=== PATIENT | female | born 1965 | race Caucasian/White ===

== ENCOUNTER 2022-06-30 22:56 | Inpatient (IN) | payer BC ==
[2022-07-01] MEDS: Ondansetron 4 MG/2 ML SDV IVPUSH PRN ×2 (00:31→06:16)
[2022-07-01] MEDS: fentaNYL 50 MCG/ML SDV IVPUSH PRN ×4 (00:31→07:39)
[2022-07-01] MEDS: Lactated Ringers 1,000 ML IV SCH ×2 (01:45→07:40)
[2022-07-01 04:34] LABS: HEMATOCRIT 43.7 % (34.3-46.0); HEMOGLOBIN 14.2 g/dL (11.2-15.5); MEAN CORPUSCULAR HEMOGLOBIN 32.9 pg (31.6-35.5); MEAN CORPUSCULAR HGB CONC 32.5 g/dL (31.6-35.5); MEAN CORPUSCULAR VOLUME 101.4 fL (81.4-99.0); RED BLOOD CELL COUNT 4.31 M/uL (3.77-5.24); WHITE BLOOD CELL COUNT,WBC 7.6 K/uL (3.2-11.0)
[2022-07-01 05:04] LABS: A/G RATIO 0.7 (1.2-2.2); ALANINE AMINOTRANSFERASE,ALT 28 U/L (12-78); ALBUMIN 2.9 g/dL (3.4-5.0); ALKALINE PHOSPHATASE 149 U/L (46-116); ASPARTATE AMNIOTRANSFERASE,AST 25 U/L (15-37); BILIRUBIN TOTAL 0.4 mg/dL (0.2-1.0); BLOOD UREA NITROGEN,BUN 7 mg/dL (7-18); CALCIUM 8.7 mg/dL (8.5-10.1); CARBON DIOXIDE,CO2 27 mmol/L (21-32); CHLORIDE,CL 103 mmol/L (100-108); CREATININE 0.8 mg/dL (0.6-1.0); ESTIMATED GFR 86 mL/min (>60); FERRITIN 244 ng/ml (8-388); GLUCOSE RANDOM 114 mg/dL (74-106); MAGNESIUM 1.8 mg/dL (1.8-2.4); PHOSPHORUS 4.3 mg/dL (2.5-4.9); POTASSIUM,K 4.8 mmol/L (3.6-5.2); SODIUM,NA 138 mmol/L (140-148)
[2022-07-01 05:07] LABS: ANION GAP 12.8 mmol/L (5.0-14.0)
[2022-07-01] MEDS: fentaNYL/Normal Saline 600 MCG/30 ML PCA Vial IV PRN ×2 (07:46→20:25)
[2022-07-01] MEDS ORDERED: Naloxone 0.4 MG/ML SDV IV PRN (08:00)
[2022-07-01] MEDS ORDERED: Ketamine 500 MG/5 ML MDV IV SCH ×2 (08:15→14:00)
[2022-07-01] MEDS ORDERED: PARoxetine 20 MG Tab PO ONE (09:15)
[2022-07-01] MEDS ORDERED: Enoxaparin 60 MG/0.6 ML Syringe SUBCUT ONE (09:45)
[2022-07-01] MEDS: Diltiazem 180 MG Cap.CD PO SCH (09:56)
[2022-07-01] MEDS: Levothyroxine 112 MCG Tab PO SCH (09:56)
[2022-07-01] MEDS: Levothyroxine 25 MCG Tab PO SCH (09:57)
[2022-07-01] MEDS: Pregabalin 50 MG Cap PO SCH ×2 (10:01→20:29)
[2022-07-01] MEDS ORDERED: Lidocaine 1% with EPINEPHrine 1:100,000 50 ML MDV ONE (12:14)
[2022-07-01] MEDS ORDERED: Bupivacaine 0.5% 50 ML MDV ONE (12:14)
[2022-07-01] MEDS ORDERED: Meropenem 500 MG SDV ONE ×2 (12:14→13:53)
[2022-07-01] MEDS ORDERED: Dexamethasone 4 MG/ML SDV ONE (13:55)
[2022-07-01] MEDS ORDERED: Propofol 200 MG/20 ML SDV ONE (13:55)
[2022-07-01] MEDS ORDERED: Rocuronium 50 MG/5 ML Vial ONE (13:55)
[2022-07-01] MEDS ORDERED: Succinylcholine 200 MG/10 ML MDV ONE (13:55)
[2022-07-01] MEDS ORDERED: Glycopyrrolate 0.2 MG/ML 5 ML MDV ONE (13:55)
[2022-07-01] MEDS ORDERED: Ondansetron 4 MG/2 ML SDV ONE (13:55)
[2022-07-01] MEDS ORDERED: fentaNYL 250 MCG/5 ML SDV ONE (13:55)
[2022-07-01] MEDS ORDERED: Neostigmine Methylsulfate 1 MG/ML 5 ML Syringe ONE (13:55)
[2022-07-01] MEDS ORDERED: Ketamine 16 MG in Sodium Chloride 0.9% 19.84 ML IV SCH (14:00)
[2022-07-01] MEDS ORDERED: Meropenem 500 MG in Sodium Chloride 0.9% 50 ML IV ONE (14:00)
[2022-07-01] MEDS ORDERED: Lactated Ringers 1,000 ML ONE (14:39)
[2022-07-01] MEDS ORDERED: Labetalol 20 MG/4 ML Syringe ONE (15:13)
[2022-07-01] MEDS ORDERED: Ketoconazole 2% Crm 30 GM Tube ONE (15:27)
[2022-07-01] MEDS ORDERED: Scopolamine 1.5 MG Transdermal Patch ONE (15:38)
[2022-07-01] MEDS ORDERED: droPERidol 5 MG/2 ML SDV ONE (15:57)
[2022-07-01] MEDS ORDERED: Cyclobenzaprine 10 MG Tab PO PRN (16:01)
[2022-07-01] MEDS ORDERED: hydrOXYzine HCl 50 MG/ML SDV IM ONE (16:02)
[2022-07-01] MEDS ORDERED: Midazolam 1 MG/ML 2 ML SDV ONE (16:06)
[2022-07-01] MEDS ORDERED: Lactated Ringers 1,000 ML IV SCH (16:15)
[2022-07-01] MEDS ORDERED: Mirtazapine 15 MG Tab PO PRN (16:31)
[2022-07-01] MEDS ORDERED: Nitroglycerin 0.4 MG Tab.SL SL PRN (16:35)
[2022-07-01] MEDS ORDERED: Albuterol/Ipratropium 3.0-0.5 MG/3 ML Neb Soln INH PRN (16:47)
[2022-07-01] MEDS ORDERED: Glucagon,Human Recombinant 1 MG Vial IM PRN (17:00)
[2022-07-01] MEDS ORDERED: 50% Dextrose in Water 50 ML Syringe IVPUSH PRN (17:00)
[2022-07-01] MEDS ORDERED: Acetaminophen 500 MG Tab PO PRN (17:00)
[2022-07-01] MEDS ORDERED: diphenhydrAMINE 50 MG/ML SDV IVPUSH PRN (17:00)
[2022-07-01] MEDS ORDERED: Metoclopramide 10 MG/2 ML SDV IVPUSH PRN (17:00)
[2022-07-01] MEDS ORDERED: Labetalol 20 MG/4 ML Syringe IVPUSH PRN (17:00)
[2022-07-01] MEDS: Insulin Lispro 100 Unit/ML 3 ML KwikPen SUBCUT SCH ×2 (17:31→21:44)
[2022-07-01] MEDS: SCOPOLAMINE PATCH CHECK TOP SCH (17:32)
[2022-07-01] MEDS: MVI, Adult with Vitamin K 10 ML, Thiamine 200 MG, Zinc/Copper/Manganese/Selenium 1 ML i... IV SCH ×4 (17:32)
[2022-07-01] MEDS: Pantoprazole 40 MG Vial IVPUSH SCH (17:34)
[2022-07-01] MEDS ORDERED: Fluconazole/Normal Saline 400 MG in Premix Bag 1 BAG IV ONE (18:00)
[2022-07-01] MEDS: Meropenem 500 MG in Sodium Chloride 0.9% 50 ML IV SCH (19:45)
[2022-07-01] MEDS ORDERED: Enoxaparin 60 MG/0.6 ML Syringe SUBCUT SCH (20:00)
[2022-07-01] MEDS: traZODone 50 MG Tab PO SCH (20:29)
[2022-07-01] MEDS: Zonisamide 50 MG Capsule PO SCH (20:30)
[2022-07-01] MEDS: Mirtazapine 15 MG Tab PO SCH (20:31)
[2022-07-01] MEDS: QUEtiapine 100 MG Tab PO SCH (20:31)
[2022-07-01] MEDS: Prazosin 1 MG Cap PO SCH (20:31)
[2022-07-01] MEDS ORDERED: traMADol 50 MG Tab PO SCH (21:00)
[2022-07-01] MEDS: Acetaminophen 500 MG Tab PO SCH (21:40)
[2022-07-02] MEDS: Meropenem 500 MG in Sodium Chloride 0.9% 50 ML IV SCH ×4 (01:55→20:25)
[2022-07-02] MEDS ORDERED: Iopamidol 612 MG/ML 30 ML SDV PO STA (03:42)
[2022-07-02 04:43] LABS: BASOPHILS PERCENT AUTO 0.2 % (0.1-1.3); HEMATOCRIT 40.4 % (34.3-46.0); HEMOGLOBIN 13.1 g/dL (11.2-15.5); IMMATURE GRAN PERCENT AUTO 0.2 % (0.0-0.7); LYMPHOCYTES ABSOLUTE AUTO 0.46 K/uL (0.8-3.3); MEAN CORPUSCULAR HEMOGLOBIN 33.1 pg (31.6-35.5); MEAN CORPUSCULAR HGB CONC 32.4 g/dL (31.6-35.5); MONOCYTES ABSOLUTE AUTO 0.56 K/uL (0.20-0.90); MONOCYTES PERCENT AUTO 8.6 % (3.3-12.6); PLATELET COUNT,PLT 225 K/uL (130-375); RED BLOOD CELL COUNT 3.96 M/uL (3.77-5.24); WHITE BLOOD CELL COUNT,WBC 6.5 K/uL (3.2-11.0)
[2022-07-02 04:46] LABS: BASOPHILS ABSOLUTE AUTO 0.01 K/uL (0.00-0.10); IMMATURE GRAN ABSOLUTE AUTO 0.01 K/uL (0.00-0.23)
[2022-07-02] MEDS: Insulin Lispro 100 Unit/ML 3 ML KwikPen SUBCUT SCH ×4 (04:52→22:05)
[2022-07-02 04:56] LABS: HEMOGLOBIN A1C 5.3 % (4.5-6.2)
[2022-07-02] MEDS: Acetaminophen 500 MG Tab PO SCH ×3 (05:05→21:37)
[2022-07-02 05:12] LABS: A/G RATIO 0.6 (1.2-2.2); ALANINE AMINOTRANSFERASE,ALT 30 U/L (12-78); ALBUMIN 2.5 g/dL (3.4-5.0); ALKALINE PHOSPHATASE 122 U/L (46-116); ASPARTATE AMNIOTRANSFERASE,AST 23 U/L (15-37); BILIRUBIN TOTAL 0.4 mg/dL (0.2-1.0); BLOOD UREA NITROGEN,BUN 12 mg/dL (7-18); CALCIUM 7.9 mg/dL (8.5-10.1); CARBON DIOXIDE,CO2 25 mmol/L (21-32); CHLORIDE,CL 102 mmol/L (100-108); CREATININE 0.9 mg/dL (0.6-1.0); EST CRCL DRUG DOSING (CG) 60.27 mL/min; ESTIMATED GFR 75 mL/min (>60); GLUCOSE RANDOM 175 mg/dL (74-106); MAGNESIUM 1.5 mg/dL (1.8-2.4); PHOSPHORUS 3.5 mg/dL (2.5-4.9); POTASSIUM,K 4.5 mmol/L (3.6-5.2); PRO B-TYPE NATRIUR PEPT,BNPPRO 457 pg/mL (5-125); PROTEIN TOTAL,TP 6.4 g/dL (6.4-8.2); SODIUM,NA 136 mmol/L (140-148)
[2022-07-02 05:14] LABS: ANION GAP 13.5 mmol/L (5.0-14.0)
[2022-07-02] MEDS: Ondansetron 4 MG/2 ML SDV IVPUSH PRN ×2 (05:14→12:39)
[2022-07-02] MEDS ORDERED: Dextrose 5%-Lactated Ringers 1,000 ML IV SCH (07:30)
[2022-07-02] MEDS: Lactated Ringers 1,000 ML IV SCH (07:59)
[2022-07-02] MEDS: Zonisamide 50 MG Capsule PO SCH ×2 (08:45→21:37)
[2022-07-02] MEDS: Pregabalin 50 MG Cap PO SCH ×2 (08:46→21:34)
[2022-07-02] MEDS: Levothyroxine 25 MCG Tab PO SCH (08:46)
[2022-07-02] MEDS: Aspirin 81 MG Tab.EC PO SCH (08:46)
[2022-07-02] MEDS: Levothyroxine 112 MCG Tab PO SCH (08:46)
[2022-07-02] MEDS: PARoxetine 20 MG Tab PO SCH (08:46)
[2022-07-02] MEDS: Diltiazem 180 MG Cap.CD PO SCH (08:46)
[2022-07-02] MEDS ORDERED: Celecoxib 200 MG Cap PO SCH (09:00)
[2022-07-02] MEDS: SCOPOLAMINE PATCH CHECK TOP SCH (09:03)
[2022-07-02] MEDS: hydrOXYzine HCl 50 MG/ML SDV IM PRN (10:04)
[2022-07-02] MEDS: Ketoconazole 2% Crm 30 GM Tube TOP SCH (10:05)
[2022-07-02] MEDS: Magnesium Sulfate/Water 2 GM/50 ML BAG IV SCH ×3 (10:59→21:38)
[2022-07-02] MEDS: Ondansetron 4 MG Tab.DIS PO PRN (12:39)
[2022-07-02] MEDS: ALPRAZolam 0.5 MG Tab PO SCH ×2 (13:49→21:34)
[2022-07-02] MEDS ORDERED: Tranexamic Acid 1,000 MG in Sodium Chloride 0.9% 50 ML IV ONE (15:30)
[2022-07-02] MEDS: Fluconazole 100 MG Tab PO SCH (17:07)
[2022-07-02] MEDS: Pantoprazole 40 MG Vial IVPUSH SCH (17:08)
[2022-07-02] MEDS: MVI, Adult with Vitamin K 10 ML, Thiamine 200 MG, Zinc/Copper/Manganese/Selenium 1 ML i... IV SCH ×4 (18:05)
[2022-07-02] MEDS: Prazosin 1 MG Cap PO SCH (21:34)
[2022-07-02] MEDS: Mirtazapine 15 MG Tab PO SCH (21:38)
[2022-07-02] MEDS: QUEtiapine 100 MG Tab PO SCH (21:38)
[2022-07-02] MEDS: traZODone 50 MG Tab PO SCH (21:38)
[2022-07-03] MEDS: Meropenem 500 MG in Sodium Chloride 0.9% 50 ML IV SCH ×3 (02:45→13:08)
[2022-07-03] MEDS: Magnesium Sulfate/Water 2 GM/50 ML BAG IV SCH ×4 (04:07→21:42)
[2022-07-03] MEDS: Insulin Lispro 100 Unit/ML 3 ML KwikPen SUBCUT SCH ×4 (04:09→22:27)
[2022-07-03 04:30] LABS: HEMATOCRIT 31.5 % (34.3-46.0); MEAN CORPUSCULAR HEMOGLOBIN 33.3 pg (31.6-35.5); MEAN CORPUSCULAR HGB CONC 31.7 g/dL (31.6-35.5); WHITE BLOOD CELL COUNT,WBC 5.1 K/uL (3.2-11.0)
[2022-07-03 05:03] LABS: A/G RATIO 0.6 (1.2-2.2); ALANINE AMINOTRANSFERASE,ALT 23 U/L (12-78); ALKALINE PHOSPHATASE 91 U/L (46-116); ANION GAP 3.1 mmol/L (5.0-14.0); ASPARTATE AMNIOTRANSFERASE,AST 21 U/L (15-37); BILIRUBIN TOTAL 0.2 mg/dL (0.2-1.0); BLOOD UREA NITROGEN,BUN 14 mg/dL (7-18); CALCIUM 7.8 mg/dL (8.5-10.1); CARBON DIOXIDE,CO2 31 mmol/L (21-32); CHLORIDE,CL 107 mmol/L (100-108); CREATININE 0.8 mg/dL (0.6-1.0); ESTIMATED GFR 86 mL/min (>60); GLUCOSE RANDOM 97 mg/dL (74-106); PHOSPHORUS 2.3 mg/dL (2.5-4.9); POTASSIUM,K 4.4 mmol/L (3.6-5.2); PRO B-TYPE NATRIUR PEPT,BNPPRO 340 pg/mL (5-125); PROTEIN TOTAL,TP 5.4 g/dL (6.4-8.2); SODIUM,NA 141 mmol/L (140-148)
[2022-07-03] MEDS: Acetaminophen 500 MG Tab PO SCH ×3 (05:22→21:37)
[2022-07-03] MEDS ORDERED: Potassium Phosphates 3 mMole/ML 15 ML SDV IV ONE (07:30)
[2022-07-03] MEDS: Diltiazem 180 MG Cap.CD PO SCH (08:16)
[2022-07-03] MEDS: Aspirin 81 MG Tab.EC PO SCH (08:16)
[2022-07-03] MEDS: Levothyroxine 112 MCG Tab PO SCH (08:17)
[2022-07-03] MEDS: Levothyroxine 25 MCG Tab PO SCH (08:17)
[2022-07-03] MEDS: SCOPOLAMINE PATCH CHECK TOP SCH (08:18)
[2022-07-03] MEDS: Ketoconazole 2% Crm 30 GM Tube TOP SCH (08:18)
[2022-07-03] MEDS: PARoxetine 20 MG Tab PO SCH (08:19)
[2022-07-03] MEDS: Zonisamide 50 MG Capsule PO SCH ×2 (08:19→21:38)
[2022-07-03] MEDS: Apixaban 5 MG Tab PO SCH ×2 (08:26→21:38)
[2022-07-03] MEDS: Docusate Sodium 100 MG Cap PO SCH ×2 (08:26→21:37)
[2022-07-03] MEDS: Bisacodyl 5 MG Tab PO SCH ×2 (08:26→21:38)
[2022-07-03] MEDS: Pantoprazole 40 MG Tab.CR PO SCH (08:26)
[2022-07-03] MEDS: ALPRAZolam 0.5 MG Tab PO SCH ×3 (08:31→21:42)
[2022-07-03] MEDS: Pregabalin 50 MG Cap PO SCH ×2 (08:32→21:42)
[2022-07-03] MEDS: HYDROmorphone 2 MG Tab PO PRN ×2 (08:57→15:03)
[2022-07-03] MEDS: Lactated Ringers 1,000 ML IV SCH (08:59)
[2022-07-03] MEDS ORDERED: Cyanocobalamin (Vitamin B12) 1,000 MCG/ML SDV IM ONE (09:00)
[2022-07-03] MEDS: Potassium Phos in 0.9 % NaCl 15 MMOL in Premix Bag 1 BAG IV SCH ×6 (09:58→16:02)
[2022-07-03] MEDS: Fluconazole 100 MG Tab PO SCH (16:01)
[2022-07-03] MEDS: hydrOXYzine HCl 50 MG/ML SDV IM PRN (17:55)
[2022-07-03] MEDS: traZODone 50 MG Tab PO SCH (21:38)
[2022-07-03] MEDS: QUEtiapine 100 MG Tab PO SCH (21:38)
[2022-07-03] MEDS: Prazosin 1 MG Cap PO SCH (21:38)
[2022-07-03] MEDS: Mirtazapine 15 MG Tab PO SCH (21:38)
[2022-07-04] MEDS: Lactated Ringers 1,000 ML IV SCH (01:35)
[2022-07-04] MEDS: Magnesium Sulfate/Water 2 GM/50 ML BAG IV SCH (03:14)
[2022-07-04 04:18] LABS: HEMOGLOBIN 9.9 g/dL (11.2-15.5); MEAN CORPUSCULAR HEMOGLOBIN 32.8 pg (31.6-35.5); MEAN CORPUSCULAR HGB CONC 30.9 g/dL (31.6-35.5); RED BLOOD CELL COUNT 3.02 M/uL (3.77-5.24); WHITE BLOOD CELL COUNT,WBC 4.8 K/uL (3.2-11.0)
[2022-07-04] MEDS: Insulin Lispro 100 Unit/ML 3 ML KwikPen SUBCUT SCH (04:21)
[2022-07-04 04:47] LABS: A/G RATIO 0.6 (1.2-2.2); ALANINE AMINOTRANSFERASE,ALT 21 U/L (12-78); ALBUMIN 2.2 g/dL (3.4-5.0); ALKALINE PHOSPHATASE 97 U/L (46-116); ANION GAP 5.1 mmol/L (5.0-14.0); ASPARTATE AMNIOTRANSFERASE,AST 26 U/L (15-37); BILIRUBIN TOTAL 0.2 mg/dL (0.2-1.0); BLOOD UREA NITROGEN,BUN 12 mg/dL (7-18); CALCIUM 7.9 mg/dL (8.5-10.1); CARBON DIOXIDE,CO2 29 mmol/L (21-32); CHLORIDE,CL 106 mmol/L (100-108); CREATININE 0.8 mg/dL (0.6-1.0); ESTIMATED GFR 86 mL/min (>60); GLUCOSE RANDOM 103 mg/dL (74-106); PHOSPHORUS 3.4 mg/dL (2.5-4.9); POTASSIUM,K 4.8 mmol/L (3.6-5.2); PRO B-TYPE NATRIUR PEPT,BNPPRO 1309 pg/mL (5-125); PROTEIN TOTAL,TP 5.9 g/dL (6.4-8.2); SODIUM,NA 140 mmol/L (140-148)
[2022-07-04] MEDS: Acetaminophen 500 MG Tab PO SCH (05:11)
[2022-07-04] MEDS: Ondansetron 4 MG Tab.DIS PO PRN (05:48)
[2022-07-04] MEDS: Bisacodyl 5 MG Tab PO SCH (08:18)
[2022-07-04] MEDS: Pantoprazole 40 MG Tab.CR PO SCH (08:18)
[2022-07-04] MEDS: Zonisamide 50 MG Capsule PO SCH (08:19)
[2022-07-04] MEDS: Diltiazem 180 MG Cap.CD PO SCH (08:19)
[2022-07-04] MEDS: Aspirin 81 MG Tab.EC PO SCH (08:19)
[2022-07-04] MEDS: Docusate Sodium 100 MG Cap PO SCH (08:19)
[2022-07-04] MEDS: Apixaban 5 MG Tab PO SCH (08:19)
[2022-07-04] MEDS: Levothyroxine 25 MCG Tab PO SCH (08:19)
[2022-07-04] MEDS: PARoxetine 20 MG Tab PO SCH (08:20)
[2022-07-04] MEDS: Ketoconazole 2% Crm 30 GM Tube TOP SCH (08:20)
[2022-07-04] MEDS: Levothyroxine 112 MCG Tab PO SCH (08:21)
[2022-07-04] MEDS: ALPRAZolam 0.5 MG Tab PO SCH (08:29)
[2022-07-04] MEDS: HYDROmorphone 2 MG Tab PO PRN (08:29)
[2022-07-04] MEDS: Pregabalin 50 MG Cap PO SCH (08:29)
[2022-07-04] MEDS ORDERED: Magnesium Hydroxide 400 MG/5 ML Susp 30 ML Cup PO ONE (09:00)
== END 2022-07-04 09:58 | disposition home or self-care (01) | DRG 221 ==
LOC: JP.MS 22:56
PROVIDERS: ADMIT Surgery; ATTEND Surgery
PROC: 0DT80ZZ Resection of Small Intestine, Open Approach (ICD-10-PCS; principal; 2022-07-01)
PROC: 0DS80ZZ Reposition Small Intestine, Open Approach (ICD-10-PCS; 2022-07-01)
PROC: 0WUF0JZ Supplement Abdominal Wall with Synthetic Substitute, Open Approach (ICD-10-PCS; 2022-07-01)
DX: K56.2 Volvulus (principal); K42.0 Umbilical hernia with obstruction, without gangrene; M79.7 Fibromyalgia; F41.1 Generalized anxiety disorder; F43.10 Post-traumatic stress disorder, unspecified; D68.32 Hemorrhagic disorder due to extrinsic circulating anticoagulants; T45.515A Adverse effect of anticoagulants, initial encounter; K59.09 Other constipation; K21.9 Gastro-esophageal reflux disease without esophagitis; E03.9 Hypothyroidism, unspecified; F90.9 Attention-deficit hyperactivity disorder, unspecified type; D50.9 Iron deficiency anemia, unspecified; F41.9 Anxiety disorder, unspecified; F32.9 Major depressive disorder, single episode, unspecified; E66.01 Morbid (severe) obesity due to excess calories; M19.90 Unspecified osteoarthritis, unspecified site; F41.3 Other mixed anxiety disorders; G43.909 Migraine, unspecified, not intractable, without status migrainosus; G47.00 Insomnia, unspecified; E78.5 Hyperlipidemia, unspecified; F43.22 Adjustment disorder with anxiety; Z90.49 Acquired absence of other specified parts of digestive tract; Z98.890 Other specified postprocedural states; Z88.0 Allergy status to penicillin; Z88.5 Allergy status to narcotic agent; Z88.8 Allergy status to other drugs, medicaments and biological substances; Z86.718 Personal history of other venous thrombosis and embolism; Z86.711 Personal history of pulmonary embolism; Z98.84 Bariatric surgery status; Z79.899 Other long term (current) drug therapy; Z79.01 Long term (current) use of anticoagulants; Z90.710 Acquired absence of both cervix and uterus; Z56.0 Unemployment, unspecified; Z87.891 Personal history of nicotine dependence
CPT/HCPCS: 36415; 74019; 74019-26; 74240; 74240-26; 80053; 82728; 82947; 83036; 83735; 83880; 84100; 84443; 85025; 85027; 86850; 86900; 86901; 86920; 86922; 88302; 88307; A9270-GY; C9113; J0131; J0171; J0330; J1100; J1450; J1650; J1790; J2020; J2185; J2250; J2405; J2704; J2710; J2795; J3010; J3410; J3411; J3420; J3475; J3490; J7120; Q0162; Q9967